=== PATIENT | male | born 1990 | race Caucasian/White ===

== ENCOUNTER 2019-03-24 02:03 | Emergency (ER) | payer BC, OTHER ==
--- NOTE | 2019-03-24 02:46 | EDM.PDOCBH ---
ED HPI GENERAL MEDICAL PROBLEM - General Chief Complaint: Behavioral/Psych Stated Complaint: EVAL Time Seen by Provider: 03/24/19 02:30 Source of Information: Reports: Patient, Police History Limitations: Reports: No Limitations - History of Present Illness INITIAL COMMENTS - FREE TEXT/NARRATIVE: 28-year-old male with chronic depression, 9 previous suicide attempts although he would not elaborate on exactly what he had done because then he would not " be able to do it again". He felt desperately depressed tonight and was considering taking his life so he called the police. He has never been hospitalized for psychiatric illness. He will not specifically tell me what brought on this increasing depression. Onset: Unknown/Unsure Associated Symptoms: Reports: No Other Symptoms - Related Data Allergies Allergy/AdvReac Type Severity Reaction Status Date / Time neomycin [Neomycin] Allergy "stallings" Verified 03/24/19 02:30 Sulfa (Sulfonamide Allergy Rash Verified 03/24/19 02:30 Antibiotics) Home Meds: Home Meds Cholecalciferol (Vitamin D3) [Vitamin D3] 1,000 unit PO DAILY 03/24/19 [History] Multivit with Calcium,Iron,Min [Essential Daily] 1 each PO DAILY 03/24/19 [ History] ED ROS GENERAL - Review of Systems Review Of Systems: See Below Constitutional: Denies: Fever, Chills Respiratory: Denies: Shortness of Breath Cardiovascular: Denies: Chest Pain GI/Abdominal: Denies: Nausea, Vomiting Psychiatric: Reports: Depression, Suicidal Ideation ED EXAM, BEHAVIORAL HEALTH - Physical Exam Exam: See Below Exam Limited By: No Limitations General Appearance: Alert, No Apparent Distress Eye Exam: Bilateral Eye: Normal Inspection Head: Atraumatic Respiratory/Chest: No Respiratory Distress, Lungs Clear Cardiovascular: Regular Rate, Rhythm Extremities: Normal Inspection Neurological: Alert, Oriented x 3 Psychiatric: Depressed Mood, Tearful Skin Exam: Warm, Dry COURSE, BEHAVIORAL HEALTH COMP - Course Vital Signs: Last Vital Signs Temp 96.8 F 03/24/19 02:33 Pulse 88 03/24/19 02:33 Resp 14 03/24/19 02:33 BP 126/84 03/24/19 02:33 Pulse Ox 96 03/24/19 02:33 Orders, Labs, Meds: Laboratory Tests 03/24/19 03/24/19 03/24/19 Range/Units 02:45 02:45 02:45 WBC 7.2 (4.5-11.0) K/uL RBC 5.97 H (4.30-5.90) M/uL Hgb 15.5 H (12.0-15.0) g/dL Hct 47.5 (40.0-54.0) % MCV 80 (80-98) fL MCH 26 L (27-31) pg MCHC 33 (32-36) % Plt Count 219 (150-400) K/uL Neut % (Auto) 48 (36-66) % Lymph % (Auto) 45 H (24-44) % [facility] % (Auto) 5 (2-6) % Eos % (Auto) 2 (2-4) % Baso % (Auto) 1 (0-1) % Sodium 133 L (140-148) mmol/L Potassium 3.8 (3.6-5.2) mmol/L Chloride 100 (100-108) mmol/L Carbon Dioxide 26 (21-32) mmol/L Anion Gap 10.8 (5.0-14.0) mmol/L BUN 9 (7-18) mg/dL Creatinine 1.0 (0.8-1.3) mg/dL Est Cr Clr Drug Dosing 139.84 mL/min Estimated GFR (MDRD) > 60 (>60) Glucose 91 (74-106) mg/dL Calcium 8.4 L (8.5-10.1) mg/dL Total Bilirubin 0.4 (0.2-1.0) mg/dL AST 27 (15-37) U/L ALT 36 (12-78) U/L Alkaline Phosphatase 78 (46-116) U/L Total Protein 7.4 (6.4-8.2) g/dL Albumin 4.2 (3.4-5.0) g/dL Globulin 3.2 (2.3-3.5) g/dL Albumin/Globulin Ratio 1.3 (1.2-2.2) Salicylates 0.3 L (2.0-20.0) mg/dL Acetaminophen 0.0 L (10.0-30.0) ug/mL Ethyl Alcohol mg/dL 03/24/19 Range/Units 02:45 WBC (4.5-11.0) K/uL RBC (4.30-5.90) M/uL Hgb (12.0-15.0) g/dL Hct (40.0-54.0) % MCV (80-98) fL MCH (27-31) pg MCHC (32-36) % Plt Count (150-400) K/uL Neut % (Auto) (36-66) % Lymph % (Auto) (24-44) % [facility] % (Auto) (2-6) % Eos % (Auto) (2-4) % Baso % (Auto) (0-1) % Sodium (140-148) mmol/L Potassium (3.6-5.2) mmol/L Chloride (100-108) mmol/L Carbon Dioxide (21-32) mmol/L Anion Gap (5.0-14.0) mmol/L BUN (7-18) mg/dL Creatinine (0.8-1.3) mg/dL Est Cr Clr Drug Dosing mL/min Estimated GFR (MDRD) (>60) Glucose (74-106) mg/dL Calcium (8.5-10.1) mg/dL Total Bilirubin (0.2-1.0) mg/dL AST (15-37) U/L ALT (12-78) U/L Alkaline Phosphatase (46-116) U/L Total Protein (6.4-8.2) g/dL Albumin (3.4-5.0) g/dL Globulin (2.3-3.5) g/dL Albumin/Globulin Ratio (1.2-2.2) Salicylates (2.0-20.0) mg/dL Acetaminophen (10.0-30.0) ug/mL Ethyl Alcohol 123 mg/dL Re-Assessment/Re-Exam: Urine drug screen, EtOH, salicylate, acetaminophen level, CBC and CMP were drawn and the patient was attempted to be placed for his own safety and obtain a formal psychiatric eval. Etoh .123. Labs otherwise good, but no urine obtained. Parents accepted patient resposibility and will take patient to [place] tomorrow Departure - Departure Time of Disposition: 03:49 Disposition: Home, Self-Care 01 Clinical Impression: Depressive disorder, Suicidal ideation - Discharge Information Instructions: Major Depressive Disorder, Adult, [id number] Referrals: PCP,None [Primary Care Provider] - Forms: ED Department Discharge Care Plan Goals: Make arrangements tomorrow for getting some help with your [facility]. Sepsis Event Note - Focused Exam Vital Signs: Vital Signs Temp Pulse Resp BP Pulse Ox 03/24/19 02:33 96.8 F 88 14 126/84 96 Date Exam was Performed: 03/24/19 Time Exam was Performed: 07:00
== END 2019-03-24 03:30 | disposition home or self-care (01) ==
LOC: JP.ED 02:03
DX: F32.9 Major depressive disorder, single episode, unspecified (principal)
CPT/HCPCS: 36415; 80053; 85025; 99284; G0480